=== PATIENT | male | born 1980 | race African-American/Black ===

== ENCOUNTER 2021-02-05 16:05 | Inpatient (IN) ==
[2021-02-05] MEDS ORDERED: DEXTROSE 50% 25 GM/50 ML VIAL IV PRN (19:40)
[2021-02-05] MEDS ORDERED: GLUCAGON 1 MG VIAL IM PRN (19:40)
[2021-02-05] MEDS ORDERED: ENOXAPARIN 40 MG/0.4 ML SYRINGE SUBCUT SCH (20:00)
[2021-02-05] MEDS ORDERED: ENOXAPARIN 100 MG/ML SYRINGE SUBCUT SCH (20:30)
[2021-02-05 20:35] LABS: Basophils # 0.1 10*3/uL (0.0-0.2); Basophils % 0.8 % (0.0-0.8); Eosinophils # 0.2 10*3/uL (0.0-0.87); Eosinophils % 2.2 % (0.00-10.9); Hematocrit 51.3 VOL% (42.0-52.0); Hemoglobin 16.8 GM/DL (14.0-18.0); Immature Granulocytes % 0.6 %; Immature Granulocytes Absolute 0.05 #; Lymphocytes # 2.4 10*3/uL (1.4-4.0); Lymphocytes % 30.5 % (21.2-54.2); Mean Corpuscular HGB Conc 32.7 GM/DL (32-36); Mean Corpuscular Volume 90.5 FL (87-102); Mean Platelet Volume 9.6 FL (9.6-12.0); Monocytes % 7.3 % (1.7-12.7); Neutrophils % 58.6 % (38.7-73.9); Platelet Count 219 T/CUMM (130-400); Red Blood Count 5.67 MC/CUMM (3.8-5.5); Red Cell Distribution Width 13.6 % (9.3-17.3); White Blood Count 7.8 T/CUMM (4-12)
[2021-02-05 21:08] LABS: Albumin 3.8 G/DL (3.4-5.0); Bilirubin,Total 0.9 MG/DL (0.2-1.0); Calcium 8.8 MG/DL (8.5-10.1); Osmolality,Calculated 279.3 MOS/KG (273-304); Potassium 3.6 MMOL/L (3.5-5.1); Thyroid Stimulating Hormone 1.23 uIU/ml (0.358-3.74); Total Protein 7.5 G/DL (6.4-8.2)
[2021-02-05] MEDS ORDERED: HEPARIN DRIP 25,000 UNITS/500 ML PREMIX IV SCH (21:30)
[2021-02-06] MEDS: hydrALAZINE 20 MG/1 ML VIAL IV PRN ×2 (00:34→12:31)
[2021-02-06 01:34] LABS: Basophils # 0.1 10*3/uL (0.0-0.2); Basophils % 0.8 % (0.0-0.8); Eosinophils # 0.3 10*3/uL (0.0-0.87); Eosinophils % 2.8 % (0.00-10.9); Hematocrit 50.7 VOL% (42.0-52.0); Hemoglobin 17.4 GM/DL (14.0-18.0); Immature Granulocytes % 0.4 %; Immature Granulocytes Absolute 0.04 #; Lymphocytes # 2.9 10*3/uL (1.4-4.0); Lymphocytes % 32.1 % (21.2-54.2); Mean Corpuscular HGB Conc 34.3 GM/DL (32-36); Mean Corpuscular Volume 88.5 FL (87-102); Mean Platelet Volume 9.8 FL (9.6-12.0); Monocytes % 7.6 % (1.7-12.7); Neutrophils % 56.3 % (38.7-73.9); Platelet Count 224 T/CUMM (130-400); Red Blood Count 5.73 MC/CUMM (3.8-5.5); Red Cell Distribution Width 13.6 % (9.3-17.3); White Blood Count 9.1 T/CUMM (4-12)
[2021-02-06 01:58] LABS: Calcium 8.6 MG/DL (8.5-10.1); Osmolality,Calculated 276.5 MOS/KG (273-304); Potassium 3.4 MMOL/L (3.5-5.1); VLDL Cholesterol 59.2 MG/DL
[2021-02-06] MEDS ORDERED: LABETALOL 20 MG/4 ML SYRINGE IV ONE (04:59)
[2021-02-06] MEDS: ACETAMINOPHEN 325 MG TABLET PO PRN ×2 (05:40→15:40)
[2021-02-06] MEDS ORDERED: DIAZEPAM 5 MG TABLET PO ONE (09:19)
[2021-02-06] MEDS ORDERED: diphenhydrAMINE CAP 25 MG CAPSULE PO ONE (09:19)
[2021-02-06] MEDS ORDERED: SODIUM CHLORIDE 0.45% 1,000 ML IV SCH (09:30)
[2021-02-06] MEDS ORDERED: LIDOCAINE 1% 20 ML VIAL ONE (09:43)
[2021-02-06] MEDS ORDERED: HEPARIN/NACL 0.9% 2 UNITS/ML 2,000 UNIT/1,000 ML BAG IV ONE (09:43)
[2021-02-06] MEDS: ASPIRIN EC 81 MG TABLET PO SCH (09:44)
[2021-02-06] MEDS: carvediloL 3.125 MG TABLET PO SCH ×2 (09:44→20:46)
[2021-02-06] MEDS: LOSARTAN 25 MG TABLET PO SCH (09:45)
[2021-02-06] MEDS: PANTOPRAZOLE 40 MG TABLET PO SCH (09:45)
[2021-02-06] MEDS ORDERED: fentaNYL 100 MCG/2 ML VIAL ONE (10:21)
[2021-02-06] MEDS ORDERED: MIDAZOLAM 2 MG/2 ML VIAL ONE (10:21)
[2021-02-06] MEDS ORDERED: HEPARIN/NACL 0.9% 2 UNITS/ML 1,000 UNIT/500 ML BAG IV ONE (10:24)
[2021-02-06 12:13] LABS: Barbiturates Screen,Urine Negative (Negative); Benzodiazepines Screen,Urine Positive (Negative); Cannabinoid Screen,Urine Positive (Negative); Opiate Screen,Urine Negative (Negative); Phencyclidine Screen,Urine Negative (Negative)
[2021-02-06] MEDS: ROSUVASTATIN 20 MG TABLET PO SCH (20:46)
[2021-02-06] MEDS: NICOTINE 14 MG/24 HR PATCH TRANSDERM PRN (23:02)
[2021-02-06] MEDS: LABETALOL 20 MG/4 ML SYRINGE IV PRN (23:02)
[2021-02-07 05:37] LABS: Basophils # 0.1 10*3/uL (0.0-0.2); Basophils % 0.5 % (0.0-0.8); Eosinophils # 0.1 10*3/uL (0.0-0.87); Eosinophils % 0.9 % (0.00-10.9); Hematocrit 54.2 VOL% (42.0-52.0); Hemoglobin 17.4 GM/DL (14.0-18.0); Immature Granulocytes % 0.3 %; Immature Granulocytes Absolute 0.03 #; Lymphocytes # 2.2 10*3/uL (1.4-4.0); Lymphocytes % 21.7 % (21.2-54.2); Mean Corpuscular HGB Conc 32.1 GM/DL (32-36); Mean Corpuscular Volume 91.6 FL (87-102); Mean Platelet Volume 9.7 FL (9.6-12.0); Monocytes % 7.5 % (1.7-12.7); Neutrophils % 69.1 % (38.7-73.9); Platelet Count 218 T/CUMM (130-400); Red Blood Count 5.92 MC/CUMM (3.8-5.5); Red Cell Distribution Width 13.7 % (9.3-17.3); White Blood Count 10.1 T/CUMM (4-12)
[2021-02-07 06:02] LABS: Calcium 8.7 MG/DL (8.5-10.1); Osmolality,Calculated 276.5 MOS/KG (273-304); Potassium 3.3 MMOL/L (3.5-5.1)
[2021-02-07] MEDS: LABETALOL 20 MG/4 ML SYRINGE IV PRN (06:42)
[2021-02-07] MEDS: ASPIRIN EC 81 MG TABLET PO SCH (08:41)
[2021-02-07] MEDS: carvediloL 3.125 MG TABLET PO SCH ×2 (08:41→20:33)
[2021-02-07] MEDS: POTASSIUM CHLORIDE 20 MEQ TABLET PO PRN ×3 (08:41→17:18)
[2021-02-07] MEDS: PANTOPRAZOLE 40 MG TABLET PO SCH (08:41)
[2021-02-07] MEDS: LOSARTAN 25 MG TABLET PO SCH ×2 (08:41→20:33)
[2021-02-07] MEDS ORDERED: carvediloL 3.125 MG TABLET PO ONE (09:04)
[2021-02-07] MEDS: ISOSORBIDE MONONITRATE 30 MG TABLET PO SCH (11:16)
[2021-02-07] MEDS: buPROPion SR 150 MG TABLET PO SCH (11:16)
[2021-02-07] MEDS: ACETAMINOPHEN 325 MG TABLET PO PRN (17:15)
[2021-02-07] MEDS: ROSUVASTATIN 20 MG TABLET PO SCH (20:33)
[2021-02-08] MEDS: ACETAMINOPHEN 325 MG TABLET PO PRN ×3 (01:20→21:55)
[2021-02-08 05:58] LABS: Basophils % 0.4 % (0.0-0.8); Eosinophils # 0.2 10*3/uL (0.0-0.87); Eosinophils % 1.4 % (0.00-10.9); Hematocrit 48.4 VOL% (42.0-52.0); Hemoglobin 15.8 GM/DL (14.0-18.0); Immature Granulocytes % 0.5 %; Immature Granulocytes Absolute 0.05 #; Lymphocytes # 2.5 10*3/uL (1.4-4.0); Lymphocytes % 23.5 % (21.2-54.2); Mean Corpuscular HGB Conc 32.6 GM/DL (32-36); Mean Corpuscular Volume 90.8 FL (87-102); Mean Platelet Volume 10.1 FL (9.6-12.0); Monocytes % 8.4 % (1.7-12.7); Neutrophils % 65.8 % (38.7-73.9); Platelet Count 208 T/CUMM (130-400); Red Blood Count 5.33 MC/CUMM (3.8-5.5); Red Cell Distribution Width 13.6 % (9.3-17.3); White Blood Count 10.5 T/CUMM (4-12)
[2021-02-08 06:13] LABS: Calcium 8.4 MG/DL (8.5-10.1); Osmolality,Calculated 278.4 MOS/KG (273-304); Potassium 3.8 MMOL/L (3.5-5.1)
[2021-02-08] MEDS: LOSARTAN 25 MG TABLET PO SCH ×2 (08:31→21:55)
[2021-02-08] MEDS: ASPIRIN EC 81 MG TABLET PO SCH (08:31)
[2021-02-08] MEDS: buPROPion SR 150 MG TABLET PO SCH (08:31)
[2021-02-08] MEDS: carvediloL 3.125 MG TABLET PO SCH ×2 (08:31→21:55)
[2021-02-08] MEDS: PANTOPRAZOLE 40 MG TABLET PO SCH (08:32)
[2021-02-08] MEDS: ISOSORBIDE MONONITRATE 30 MG TABLET PO SCH (08:35)
[2021-02-08] MEDS: POLYETHYLENE GLYCOL POWDER 17 GM PACK PO SCH (10:50)
[2021-02-08] MEDS: ROSUVASTATIN 20 MG TABLET PO SCH (21:55)
[2021-02-09 04:08] LABS: Basophils # 0.1 10*3/uL (0.0-0.2); Basophils % 0.6 % (0.0-0.8); Eosinophils # 0.2 10*3/uL (0.0-0.87); Eosinophils % 2.6 % (0.00-10.9); Hematocrit 48.9 VOL% (42.0-52.0); Hemoglobin 16.8 GM/DL (14.0-18.0); Immature Granulocytes % 0.2 %; Immature Granulocytes Absolute 0.02 #; Lymphocytes # 2.7 10*3/uL (1.4-4.0); Lymphocytes % 32.9 % (21.2-54.2); Mean Corpuscular HGB Conc 34.4 GM/DL (32-36); Mean Corpuscular Volume 88.6 FL (87-102); Mean Platelet Volume 10.2 FL (9.6-12.0); Monocytes % 9.2 % (1.7-12.7); Neutrophils % 54.5 % (38.7-73.9); Platelet Count 187 T/CUMM (130-400); Red Blood Count 5.52 MC/CUMM (3.8-5.5); Red Cell Distribution Width 13.4 % (9.3-17.3); White Blood Count 8.2 T/CUMM (4-12)
[2021-02-09 04:31] LABS: Calcium 8.4 MG/DL (8.5-10.1); Osmolality,Calculated 276.5 MOS/KG (273-304); Potassium 3.4 MMOL/L (3.5-5.1)
[2021-02-09] MEDS: carvediloL 3.125 MG TABLET PO SCH (08:49)
[2021-02-09] MEDS: ISOSORBIDE MONONITRATE 30 MG TABLET PO SCH (08:49)
[2021-02-09] MEDS: ASPIRIN EC 81 MG TABLET PO SCH (08:49)
[2021-02-09] MEDS: PANTOPRAZOLE 40 MG TABLET PO SCH (08:49)
[2021-02-09] MEDS: LOSARTAN 25 MG TABLET PO SCH (08:49)
[2021-02-09] MEDS: POLYETHYLENE GLYCOL POWDER 17 GM PACK PO SCH (08:49)
[2021-02-09] MEDS: buPROPion SR 150 MG TABLET PO SCH (08:50)
[2021-02-09] MEDS ORDERED: carvediloL 6.25 MG TABLET PO ONE (10:06)
[2021-02-09] MEDS ORDERED: ISOSORBIDE MONONITRATE 30 MG TABLET PO ONE (10:08)
[2021-02-09] MEDS ORDERED: POTASSIUM CHLORIDE 20 MEQ TABLET PO ONE (10:09)
[2021-02-09] MEDS: NICOTINE 14 MG/24 HR PATCH TRANSDERM PRN (12:20)
[2021-02-09] MEDS: ALUMINUM/MAGNES/SIMETH MAX STR 30 ML UDCUP PO PRN (13:14)
[2021-02-09] MEDS: LORazepam 1 MG TABLET PO PRN ×2 (13:14→20:41)
[2021-02-09] MEDS: ACETAMINOPHEN 325 MG TABLET PO PRN ×2 (15:47→20:41)
[2021-02-09] MEDS: carvediloL 12.5 MG TABLET PO SCH (20:41)
[2021-02-09] MEDS: ROSUVASTATIN 20 MG TABLET PO SCH (20:41)
[2021-02-09] MEDS: VALSARTAN 80 MG TABLET PO SCH (20:50)
[2021-02-10] MEDS ORDERED: MAGNESIUM HYDROXIDE SUSP 30 ML UDCUP PO ONE (09:24)
[2021-02-10] MEDS: PANTOPRAZOLE 40 MG TABLET PO SCH (10:57)
[2021-02-10] MEDS: buPROPion SR 150 MG TABLET PO SCH (10:57)
[2021-02-10] MEDS: ISOSORBIDE MONONITRATE 30 MG TABLET PO SCH (10:57)
[2021-02-10] MEDS: ASPIRIN EC 81 MG TABLET PO SCH (10:58)
[2021-02-10] MEDS: carvediloL 12.5 MG TABLET PO SCH ×2 (10:58→21:45)
[2021-02-10] MEDS: POLYETHYLENE GLYCOL POWDER 17 GM PACK PO SCH (10:59)
[2021-02-10] MEDS: VALSARTAN 80 MG TABLET PO SCH ×2 (11:02→21:45)
[2021-02-10] MEDS: ALUMINUM/MAGNES/SIMETH MAX STR 30 ML UDCUP PO PRN (15:45)
[2021-02-10] MEDS: ACETAMINOPHEN 325 MG TABLET PO PRN (15:52)
[2021-02-10] MEDS: CLORAZEPATE 3.75 MG TABLET PO PRN (17:26)
[2021-02-10] MEDS: NICOTINE 14 MG/24 HR PATCH TRANSDERM PRN (21:45)
[2021-02-10] MEDS: ROSUVASTATIN 20 MG TABLET PO SCH (21:45)
[2021-02-11] MEDS: ACETAMINOPHEN 325 MG TABLET PO PRN ×3 (00:35→22:08)
[2021-02-11] MEDS: CLORAZEPATE 3.75 MG TABLET PO PRN ×3 (00:35→22:08)
[2021-02-11 03:45] LABS: ABG Base Excess 1.3 MMOL/L (-2.5-2.5); ABG HCO3 25.8 MMOL/L (20-26); ABG Oxygen Saturation 97.6 % (95-100); ABG PCO2 40.6 MM HG (35-48); ABG PH 7.421 (7.35-7.45); ABG PO2 99.3 MM HG (80-95)
[2021-02-11 05:16] LABS: Basophils # 0.1 10*3/uL (0.0-0.2); Basophils % 0.7 % (0.0-0.8); Eosinophils # 0.2 10*3/uL (0.0-0.87); Eosinophils % 2.6 % (0.00-10.9); Hematocrit 47.7 VOL% (42.0-52.0); Hemoglobin 15.9 GM/DL (14.0-18.0); Immature Granulocytes % 0.4 %; Immature Granulocytes Absolute 0.03 #; Lymphocytes % 36.3 % (21.2-54.2); Mean Corpuscular HGB Conc 33.3 GM/DL (32-36); Mean Corpuscular Volume 90.3 FL (87-102); Mean Platelet Volume 10.1 FL (9.6-12.0); Monocytes % 8.3 % (1.7-12.7); Neutrophils % 51.7 % (38.7-73.9); Platelet Count 207 T/CUMM (130-400); Red Blood Count 5.28 MC/CUMM (3.8-5.5); Red Cell Distribution Width 13.3 % (9.3-17.3); White Blood Count 8.2 T/CUMM (4-12)
[2021-02-11 05:44] LABS: Alanine Aminotransferase 31 U/L (16-61); Albumin 3.5 G/DL (3.4-5.0); Alkaline Phosphatase 71 U/L (45-117); Aspartate Amino Transferase 12 U/L (0-37); Blood Urea Nitrogen 11 MG/DL (7-18); Calcium 8.7 MG/DL (8.5-10.1); Carbon Dioxide 29 MMOL/L (21-32); Estimated Glom Filtration Rate 168 ML/MIN; Glucose 99 MG/DL (74-106); Osmolality,Calculated 275.5 MOS/KG (273-304); Potassium 3.6 MMOL/L (3.5-5.1); Sodium 139 MMOL/L (136-145)
[2021-02-11] MEDS: POLYETHYLENE GLYCOL POWDER 17 GM PACK PO SCH (09:29)
[2021-02-11] MEDS: VALSARTAN 80 MG TABLET PO SCH ×2 (09:31→22:08)
[2021-02-11] MEDS: carvediloL 12.5 MG TABLET PO SCH ×2 (09:32→22:09)
[2021-02-11] MEDS: ASPIRIN EC 81 MG TABLET PO SCH (09:32)
[2021-02-11] MEDS: PANTOPRAZOLE 40 MG TABLET PO SCH (09:32)
[2021-02-11] MEDS: ISOSORBIDE MONONITRATE 30 MG TABLET PO SCH (09:32)
[2021-02-11] MEDS: CHLORHEXIDINE 0.12% ORAL RINSE 60 ML BOTTLE SWISH/SPIT SCH ×2 (09:33→22:09)
[2021-02-11] MEDS: buPROPion SR 150 MG TABLET PO SCH ×2 (09:33→22:08)
[2021-02-11] MEDS: CHLORHEXIDINE 4% SOLN 118 ML BOTTLE TOP SCH ×3 (09:36→22:09)
[2021-02-11] MEDS: ROSUVASTATIN 20 MG TABLET PO SCH (22:08)
[2021-02-12] MEDS ORDERED: PAPAVERINE 60 MG/2 ML VIAL ONE (04:15)
[2021-02-12] MEDS ORDERED: VANCOMYCIN 500 MG VIAL ONE (04:16)
[2021-02-12] MEDS ORDERED: VANCOMYCIN 1,000 MG VIAL ONE (04:16)
[2021-02-12] MEDS ORDERED: CEFUROXIME INJ 1,500 MG in SODIUM CHLORIDE 0.9% 100 ML IV ONE (05:00)
[2021-02-12] MEDS ORDERED: DIAZEPAM 5 MG TABLET PO ONE (05:51)
[2021-02-12] MEDS ORDERED: SODIUM CHLORIDE 0.9% 250 ML IV ONE (06:02)
[2021-02-12] MEDS ORDERED: LIDOCAINE 2% 5 ML VIAL ONE ×2 (06:02→10:23)
[2021-02-12] MEDS ORDERED: MIDAZOLAM 10 MG/2 ML VIAL ONE ×2 (06:02→08:42)
[2021-02-12] MEDS ORDERED: ETOMIDATE 40 MG/20 ML VIAL IV ONE (06:02)
[2021-02-12] MEDS ORDERED: LACTATED RINGERS 1,000 ML IV ONE (06:02)
[2021-02-12] MEDS ORDERED: VECURONIUM 10 MG VIAL IV ONE (06:02)
[2021-02-12] MEDS ORDERED: CALCIUM CHLORIDE 1,000 MG/10 ML VIAL IV ONE (06:02)
[2021-02-12] MEDS ORDERED: SODIUM CHLORIDE 0.9% 1,000 ML IV ONE (06:02)
[2021-02-12] MEDS ORDERED: HEPARIN/NACL 0.9% 2 UNITS/ML 1,000 UNIT/500 ML BAG IV ONE (06:02)
[2021-02-12] MEDS ORDERED: SUFentanil 250 MCG/5 ML AMP ONE (06:03)
[2021-02-12] MEDS ORDERED: AMINOCAPROIC ACID 5,000 MG/20 ML VIAL ONE (06:06)
[2021-02-12] MEDS ORDERED: ePHEDrine 50 MG/ML VIAL ONE (06:26)
[2021-02-12 07:49] LABS: ABG Base Excess 1.7 MMOL/L (-2.5-2.5); ABG HCO3 25.9 MMOL/L (20-26); ABG PCO2 33.5 MM HG (35-48); ABG PH 7.473 (7.35-7.45); ABG TCO2 20.6 MMOL/L (23-27); Glucose Heart Surgery 133 MG/DL (74-106); Hematocrit Heart Surgery 46.9 PERCENT (42-52); Hemoglobin Heart Surgery 15.3 G/DL (14.0-18.0); Ionized Calcium Arterial 1.09 MMOL/L (1.21-1.46); PCO2 Patient Temp Arterial 33.5 MMHG; PH Patient Temp Arterial 7.473; Patient Temperature 37 CELCIUS; Potassium Heart/CVR 3.6 MMOL/L (3.5-5.1); Sodium Heart/CVR 138 MMOL/L (135-145)
[2021-02-12 07:55] LABS: Bilirubin,Urine Negative (Negative); Blood, Urine Moderate mg/dL (Negative); Glucose,Urine (UA) Negative (Negative); Ketones,Urine Negative (Negative); Mucus,Urine Many /LPF (Occasional); Nitrite,Urine Negative (Negative); Protein,Urine Negative; RBC,Urine 1 /HPF (0-4); Urine Appearance CLEAR (Clear); Urine Color Yellow (Yellow); Urine Specific Gravity 1.024 (1.001-1.035); Urine Urobilinogen < 2.0 EU/DL (0.2-1.0)
[2021-02-12] MEDS ORDERED: POTASSIUM CHLORIDE RIDER 20 MEQ/100 ML PREMIX IV ONE (08:15)
[2021-02-12] MEDS ORDERED: PHENYLEPHRINE DRIP 40 MG/250 ML PREMIX IV ONE (08:15)
[2021-02-12] MEDS ORDERED: SODIUM BICARBONATE 50 MEQ/50 ML VIAL IV ONE ×2 (08:15→10:24)
[2021-02-12] MEDS ORDERED: NITROPRUSSIDE 50 MG/2 ML VIAL ONE (08:15)
[2021-02-12] MEDS ORDERED: CALCIUM CHLORIDE 1,000 MG/10 ML SYRINGE IV ONE (08:16)
[2021-02-12] MEDS ORDERED: ALBUMIN 5% 25.0 GM/500 ML VIAL IV ONE (08:17)
[2021-02-12 09:11] LABS: Hematocrit Heart Surgery 34.7 PERCENT (42-52); Hemoglobin Heart Surgery 11.2 G/DL (14.0-18.0); PCO2 Patient Temp Venous 32.4 MM HG; PH Patient Temp Venous 7.5; PO2 Patient Temp Venous 35.5 MM HG; Potassium Heart/CVR 5.1 MMOL/L (3.5-5.1); VBG Base Excess 2.5 MEQ/L (0-4); VBG HCO3 26.3 MEQ/L (24-28); VBG Oxygen Saturation 81.5 %; VBG PCO2 37.4 MMHG (41-51); VBG PH 7.455; VBG PO2 43.7 MMHG (17-40); VBG Total CO2 23.5 MMOL/L
[2021-02-12] MEDS ORDERED: SEVOFLURANE 1 UNIT/15 MINUTE INH ONE ×12 (09:20→10:34)
[2021-02-12 09:42] LABS: Hematocrit Heart Surgery 34.9 PERCENT (42-52); Hemoglobin Heart Surgery 11.3 G/DL (14.0-18.0); PCO2 Patient Temp Venous 30.6 MM HG; PH Patient Temp Venous 7.513; PO2 Patient Temp Venous 38.2 MM HG; Potassium Heart/CVR 4.7 MMOL/L (3.5-5.1); VBG Base Excess 2.2 MEQ/L (0-4); VBG HCO3 26.1 MEQ/L (24-28); VBG Oxygen Saturation 84.9 %; VBG PCO2 35.3 MMHG (41-51); VBG PH 7.468; VBG PO2 47.1 MMHG (17-40); VBG Total CO2 22.8 MMOL/L
[2021-02-12] MEDS ORDERED: THROMBIN TOPICAL (RECOMBINANT) 5,000 UNIT VIAL TOP ONE (10:04)
[2021-02-12] MEDS ORDERED: ALBUMIN 25% 25 GM/100 ML VIAL IV ONE (10:21)
[2021-02-12] MEDS ORDERED: methylPREDNISolone SOD SUC 1,000 MG/8 ML VIAL ONE (10:23)
[2021-02-12] MEDS ORDERED: HEPARIN 10,000 UNIT/10 ML VIAL ONE (10:23)
[2021-02-12] MEDS ORDERED: MAGNESIUM SULFATE 5 GM/10 ML VIAL IV ONE (10:23)
[2021-02-12] MEDS ORDERED: PROTAMINE SULFATE 250 MG/25 ML VIAL IV ONE (10:23)
[2021-02-12] MEDS ORDERED: DEXTROSE 5% KCL 20 MEQ 20 MEQ/1,000 ML BAG IV ONE (10:23)
[2021-02-12] MEDS ORDERED: FUROSEMIDE 20 MG/2 ML VIAL ONE (10:23)
[2021-02-12] MEDS ORDERED: MANNITOL 100 GM/500 ML BAG IV ONE (10:23)
[2021-02-12] MEDS ORDERED: PROTAMINE SULFATE 50 MG/5 ML VIAL IV ONE ×2 (10:24→11:33)
[2021-02-12 10:35] LABS: ABG HCO3 24.5 MMOL/L (20-26); ABG PCO2 36.3 MM HG (35-48); ABG PH 7.427 (7.35-7.45); ABG TCO2 20.9 MMOL/L (23-27); Glucose Heart Surgery 209 MG/DL (74-106); Hematocrit Heart Surgery 39.8 PERCENT (42-52); Ionized Calcium Arterial 1.11 MMOL/L (1.21-1.46); PCO2 Patient Temp Arterial 36.3 MMHG; PH Patient Temp Arterial 7.427; Patient Temperature 37 CELCIUS; Potassium Heart/CVR 3.9 MMOL/L (3.5-5.1); Sodium Heart/CVR 136 MMOL/L (135-145)
[2021-02-12] MEDS ORDERED: NITROGLYCERIN DRIP 50 MG/250 ML BOTTLE IV ONE (10:42)
[2021-02-12] MEDS ORDERED: PHENYLEPHRINE DRIP 20 MG/250 ML PREMIX IV ONE (10:42)
[2021-02-12] MEDS ORDERED: PHENYLEPHRINE 1 MG/10 ML SYRINGE IV ONE (10:42)
[2021-02-12] MEDS ORDERED: NITROPRUSSIDE 100 MG in DEXTROSE 5% 250 ML IV PRN (10:59)
[2021-02-12] MEDS ORDERED: MAGNESIUM SULF RIDER 2 GM/50 ML PREMIX IV PRN (10:59)
[2021-02-12] MEDS ORDERED: INSULIN REGULAR 100 UNIT/ML IV ONE (10:59)
[2021-02-12] MEDS ORDERED: MORPHINE 10 MG/1 ML VIAL IV PRN (10:59)
[2021-02-12] MEDS ORDERED: PHENYLEPHRINE DRIP 40 MG/250 ML PREMIX IV PRN (10:59)
[2021-02-12] MEDS ORDERED: MAGNESIUM SULF RIDER 4 GM/100 ML PREMIX IV PRN (10:59)
[2021-02-12] MEDS ORDERED: CALCIUM CHLORIDE 1,000 MG/10 ML SYRINGE IV PRN (10:59)
[2021-02-12] MEDS ORDERED: INSULIN REGULAR 100 UNIT/ML IV PRN (10:59)
[2021-02-12] MEDS ORDERED: DEXTROSE 50% 25 GM/50 ML VIAL IV PRN ×2 (10:59)
[2021-02-12] MEDS ORDERED: CHLORHEXIDINE 4% SOLN 118 ML BOTTLE TOP PRN (10:59)
[2021-02-12] MEDS ORDERED: MIDAZOLAM 10 MG/2 ML VIAL IV PRN (10:59)
[2021-02-12] MEDS ORDERED: ACETAMINOPHEN 650 MG SUPP RECTAL PRN (10:59)
[2021-02-12] MEDS ORDERED: VECURONIUM 10 MG VIAL IV PRN ×2 (10:59)
[2021-02-12] MEDS ORDERED: MIDAZOLAM 2 MG/2 ML VIAL IV PRN (10:59)
[2021-02-12] MEDS ORDERED: INSULIN REGULAR DRIP 100 ML IV SCH (11:00)
[2021-02-12] MEDS ORDERED: SODIUM CHLORIDE 0.45% 1,000 ML IV SCH (11:00)
[2021-02-12] MEDS: SODIUM CHLORIDE 0.45% 1,000 ML IV SCH (11:11)
[2021-02-12] MEDS: LACTATED RINGERS 250 ML IV PRN ×8 (11:30→13:29)
[2021-02-12] MEDS: ASPIRIN EC 81 MG TABLET PO SCH (11:36)
[2021-02-12] MEDS: SODIUM CHLORIDE 0.9% 1,000 ML IV SCH (11:36)
[2021-02-12] MEDS: carvediloL 12.5 MG TABLET PO SCH (11:36)
[2021-02-12] MEDS: PANTOPRAZOLE 40 MG TABLET PO SCH (11:37)
[2021-02-12] MEDS: ISOSORBIDE MONONITRATE 30 MG TABLET PO SCH (11:37)
[2021-02-12] MEDS: VALSARTAN 80 MG TABLET PO SCH ×3 (11:37→20:14)
[2021-02-12] MEDS: POLYETHYLENE GLYCOL POWDER 17 GM PACK PO SCH (11:37)
[2021-02-12] MEDS: buPROPion SR 150 MG TABLET PO SCH (11:37)
[2021-02-12] MEDS: CHLORHEXIDINE 0.12% ORAL RINSE 60 ML BOTTLE SWISH/SPIT SCH ×2 (11:37→20:34)
[2021-02-12 12:01] LABS: ABG Base Excess 0.4 MMOL/L (-2.5-2.5); ABG HCO3 24.8 MMOL/L (20-26); ABG Oxygen Saturation 98.7 % (95-100); ABG PCO2 43.8 MM HG (35-48); ABG TCO2 22.2 MMOL/L (23-27); Glucose Heart Surgery 174 MG/DL (74-106); Hematocrit Heart Surgery 44.4 PERCENT (42-52); Hemoglobin Heart Surgery 14.5 G/DL (14.0-18.0); Potassium Heart/CVR 3.6 MMOL/L (3.5-5.1)
[2021-02-12 12:17] LABS: Basophils # 0.1 10*3/uL (0.0-0.2); Basophils % 0.4 % (0.0-0.8); Eosinophils # 0.1 10*3/uL (0.0-0.87); Eosinophils % 0.5 % (0.00-10.9); Hematocrit 42.6 VOL% (42.0-52.0); Hemoglobin 14.1 GM/DL (14.0-18.0); Immature Granulocytes Absolute 0.13 #; Lymphocytes # 1.1 10*3/uL (1.4-4.0); Lymphocytes % 8.7 % (21.2-54.2); Mean Corpuscular HGB Conc 33.1 GM/DL (32-36); Mean Corpuscular Volume 90.1 FL (87-102); Monocytes % 5.2 % (1.7-12.7); Neutrophils % 84.2 % (38.7-73.9); Platelet Count 198 T/CUMM (130-400); Red Blood Count 4.73 MC/CUMM (3.8-5.5); Red Cell Distribution Width 13.4 % (9.3-17.3)
[2021-02-12 12:28] LABS: Albumin 3.2 G/DL (3.4-5.0); Bilirubin,Total 0.8 MG/DL (0.2-1.0); Calcium 7.8 MG/DL (8.5-10.1); Osmolality,Calculated 283.3 MOS/KG (273-304); PT Patient Result 11.6 SECS (10.5-12.0); Partial Thromboplastin Time 29.1 SECS (23.9-33.8); Potassium 3.7 MMOL/L (3.5-5.1); Total Protein 5.9 G/DL (6.4-8.2)
[2021-02-12 12:29] LABS: CKMB % 3.4 %
[2021-02-12 12:30] LABS: High Sensitive Troponin I* 3500.5 ng/L (0-78)
[2021-02-12] MEDS: POTASSIUM CHLORIDE RIDER 20 MEQ/100 ML PREMIX IV PRN ×3 (12:31→20:14)
[2021-02-12] MEDS: POTASSIUM CHLORIDE RIDER 10 MEQ/100 ML PREMIX IV PRN ×3 (13:15→21:17)
[2021-02-12] MEDS: ALBUMIN 5% 12.5 GM/250 ML VIAL IV PRN ×4 (13:25→16:08)
[2021-02-12] MEDS: MORPHINE 4 MG/1 ML VIAL IV PRN ×2 (13:36→15:46)
[2021-02-12] MEDS: KETOROLAC 30 MG/1 ML VIAL IV SCH ×2 (13:42→19:25)
[2021-02-12 14:05] LABS: ABG Base Excess 0.9 MMOL/L (-2.5-2.5); ABG HCO3 25.2 MMOL/L (20-26); ABG Oxygen Saturation 98.8 % (95-100); ABG PH 7.449 (7.35-7.45); ABG TCO2 20.8 MMOL/L (23-27); Glucose Heart Surgery 202 MG/DL (74-106); Hematocrit Heart Surgery 43.9 PERCENT (42-52); Hemoglobin Heart Surgery 14.3 G/DL (14.0-18.0); Potassium Heart/CVR 4.2 MMOL/L (3.5-5.1)
[2021-02-12] MEDS ORDERED: hydrALAZINE 20 MG/1 ML VIAL IV ONE (14:25)
[2021-02-12] MEDS ORDERED: carvediloL 12.5 MG TABLET PO SCH (14:26)
[2021-02-12] MEDS ORDERED: hydrALAZINE 20 MG/1 ML VIAL ONE (14:29)
[2021-02-12 15:43] LABS: ABG Base Excess -0.5 MMOL/L (-2.5-2.5); ABG HCO3 23.4 MMOL/L (20-26); ABG Oxygen Saturation 98.1 % (95-100); ABG PO2 111.8 MM HG (80-95); ABG TCO2 24.5 MMOL/L (23-27); Glucose Heart Surgery 171 MG/DL (74-106); Potassium Heart/CVR 3.5 MMOL/L (3.5-5.1)
[2021-02-12] MEDS: oxyCODONE/ACETAMINOPHEN 5-325 MG TABLET PO PRN (16:48)
[2021-02-12] MEDS ORDERED: carvediloL 12.5 MG TABLET PO ONE (17:11)
[2021-02-12] MEDS: HYDROmorphone 2 MG/1 ML VIAL IV PRN ×2 (17:20→21:17)
[2021-02-12] MEDS ORDERED: NITROGLYCERIN DRIP 50 MG/250 ML BOTTLE IV PRN (18:05)
[2021-02-12] MEDS: CEFUROXIME INJ 1,500 MG in SODIUM CHLORIDE 0.9% 100 ML IV SCH (19:10)
[2021-02-12 19:50] LABS: Potassium 3.9 MMOL/L (3.5-5.1)
[2021-02-12] MEDS: INSULIN LISPRO 100 UNIT/ML SUBCUT SCH (20:13)
[2021-02-12] MEDS: carvediloL 25 MG TABLET PO SCH (20:14)
[2021-02-12 20:36] LABS: CKMB % 2.3 %
[2021-02-12 20:38] LABS: High Sensitive Troponin I* 3247.3 ng/L (0-78)
[2021-02-12] MEDS: ONDANSETRON 4 MG/2 ML VIAL IV PRN (21:17)
[2021-02-12 23:03] LABS: ABG Base Excess -0.1 MMOL/L (-2.5-2.5); ABG HCO3 24.4 MMOL/L (20-26); ABG Oxygen Saturation 97.7 % (95-100); ABG PCO2 43.1 MM HG (35-48); ABG PH 7.377 (7.35-7.45); ABG PO2 97.9 MM HG (80-95); ABG TCO2 22.2 MMOL/L (23-27); Glucose Heart Surgery 159 MG/DL (74-106); Hematocrit Heart Surgery 39.7 PERCENT (42-52); Hemoglobin Heart Surgery 12.9 G/DL (14.0-18.0); Potassium Heart/CVR 4.3 MMOL/L (3.5-5.1)
[2021-02-13] MEDS: HYDROmorphone 2 MG/1 ML VIAL IV PRN ×2 (00:30→07:33)
[2021-02-13] MEDS ORDERED: CLORAZEPATE 3.75 MG TABLET PO ONE ×2 (01:05→09:30)
[2021-02-13] MEDS: INSULIN LISPRO 100 UNIT/ML SUBCUT SCH ×7 (01:32→23:52)
[2021-02-13] MEDS ORDERED: NITROPRUSSIDE 50 MG/2 ML VIAL ONE ×2 (01:43→01:45)
[2021-02-13] MEDS: oxyCODONE/ACETAMINOPHEN 5-325 MG TABLET PO PRN ×3 (02:08→21:47)
[2021-02-13] MEDS: KETOROLAC 30 MG/1 ML VIAL IV SCH ×4 (02:08→20:01)
[2021-02-13 02:44] LABS: ABG Base Excess 1.9 MMOL/L (-2.5-2.5); ABG HCO3 26.1 MMOL/L (20-26); ABG Oxygen Saturation 97.2 % (95-100); ABG PCO2 42.6 MM HG (35-48); ABG PH 7.408 (7.35-7.45); ABG PO2 84.8 MM HG (80-95); ABG TCO2 24.2 MMOL/L (23-27); Glucose Heart Surgery 172 MG/DL (74-106); Hemoglobin Heart Surgery 10.7 G/DL (14.0-18.0); Potassium Heart/CVR 3.8 MMOL/L (3.5-5.1)
[2021-02-13] MEDS ORDERED: SUFentanil 250 MCG/5 ML AMP ONE (02:44)
[2021-02-13] MEDS ORDERED: VECURONIUM 10 MG VIAL IV ONE (02:44)
[2021-02-13] MEDS ORDERED: MIDAZOLAM 10 MG/2 ML VIAL ONE (02:44)
[2021-02-13] MEDS ORDERED: ETOMIDATE 40 MG/20 ML VIAL IV ONE (02:49)
[2021-02-13] MEDS ORDERED: AMIODARONE 150 MG/3 ML VIAL ONE (03:38)
[2021-02-13 03:46] LABS: ABG Base Excess 1.9 MMOL/L (-2.5-2.5); ABG HCO3 26.1 MMOL/L (20-26); ABG PCO2 32.8 MM HG (35-48); ABG PH 7.487 (7.35-7.45); ABG TCO2 22.3 MMOL/L (23-27); Glucose Heart Surgery 158 MG/DL (74-106); Hematocrit Heart Surgery 32.7 PERCENT (42-52); Hemoglobin Heart Surgery 10.6 G/DL (14.0-18.0); Ionized Calcium Arterial 1.04 MMOL/L (1.21-1.46); PCO2 Patient Temp Arterial 32.8 MMHG; PH Patient Temp Arterial 7.487; Patient Temperature 37 CELCIUS; Sodium Heart/CVR 135 MMOL/L (135-145)
[2021-02-13] MEDS ORDERED: VANCOMYCIN 1,000 MG VIAL ONE (03:50)
[2021-02-13] MEDS ORDERED: EPINEPHrine 1 MG/10 ML SYRINGE ONE (03:59)
[2021-02-13] MEDS ORDERED: CALCIUM CHLORIDE 1,000 MG/10 ML VIAL IV ONE (04:13)
[2021-02-13] MEDS ORDERED: PHENYLEPHRINE DRIP 20 MG/250 ML PREMIX IV ONE (04:48)
[2021-02-13 04:49] LABS: ABG Base Excess 1.3 MMOL/L (-2.5-2.5); ABG HCO3 25.6 MMOL/L (20-26); ABG PCO2 30.4 MM HG (35-48); ABG PH 7.502 (7.35-7.45); ABG TCO2 21.5 MMOL/L (23-27); Glucose Heart Surgery 143 MG/DL (74-106); Hematocrit Heart Surgery 31.5 PERCENT (42-52); Hemoglobin Heart Surgery 10.2 G/DL (14.0-18.0); Potassium Heart/CVR 3.6 MMOL/L (3.5-5.1)
[2021-02-13 05:16] LABS: Basophils % 0.1 % (0.0-0.8); Immature Granulocytes % 0.6 %; Immature Granulocytes Absolute 0.11 #; Lymphocytes # 1.4 10*3/uL (1.4-4.0); Lymphocytes % 7.8 % (21.2-54.2); Mean Corpuscular HGB Conc 33.7 GM/DL (32-36); Mean Corpuscular Volume 89.6 FL (87-102); Mean Platelet Volume 10.2 FL (9.6-12.0); Monocytes % 6.6 % (1.7-12.7); Neutrophils % 84.9 % (38.7-73.9); Red Cell Distribution Width 13.5 % (9.3-17.3)
[2021-02-13 05:17] LABS: Albumin 3.5 G/DL (3.4-5.0); Bilirubin,Direct 0.16 MG/DL (0.0-0.20); Bilirubin,Total 0.7 MG/DL (0.2-1.0); Calcium 8.8 MG/DL (8.5-10.1); Hemoglobin 10.1 GM/DL (14.0-18.0); Osmolality,Calculated 271.1 MOS/KG (273-304); Platelet Count 257 T/CUMM (130-400); Potassium 3.7 MMOL/L (3.5-5.1); Red Blood Count 3.35 MC/CUMM (3.8-5.5); Total Protein 5.8 G/DL (6.4-8.2); White Blood Count 17.9 T/CUMM (4-12)
[2021-02-13] MEDS: POTASSIUM CHLORIDE RIDER 10 MEQ/100 ML PREMIX IV PRN (05:19)
[2021-02-13 05:20] LABS: CKMB % 2.1 %
[2021-02-13] MEDS: POTASSIUM CHLORIDE RIDER 20 MEQ/100 ML PREMIX IV PRN (05:39)
[2021-02-13] MEDS: MORPHINE 4 MG/1 ML VIAL IV PRN (05:52)
[2021-02-13 06:37] LABS: ABG Base Excess 0.8 MMOL/L (-2.5-2.5); ABG HCO3 23.7 MMOL/L (20-26); ABG Oxygen Saturation 98.7 % (95-100); ABG PCO2 32.3 MM HG (35-48); ABG PH 7.484 (7.35-7.45); ABG PO2 172.2 MM HG (80-95); ABG TCO2 24.7 MMOL/L (23-27); Glucose Heart Surgery 111 MG/DL (74-106); Potassium Heart/CVR 4.2 MMOL/L (3.5-5.1)
[2021-02-13] MEDS: CLORAZEPATE 3.75 MG TABLET PO PRN ×2 (07:34→20:02)
[2021-02-13] MEDS: CEFUROXIME INJ 1,500 MG in SODIUM CHLORIDE 0.9% 100 ML IV SCH ×2 (07:47→18:00)
[2021-02-13] MEDS: amLODIPine 5 MG TABLET PO SCH (08:45)
[2021-02-13] MEDS: CHLORHEXIDINE 0.12% ORAL RINSE 60 ML BOTTLE SWISH/SPIT SCH ×2 (08:45→20:01)
[2021-02-13] MEDS: carvediloL 25 MG TABLET PO SCH ×2 (08:45→20:01)
[2021-02-13] MEDS: VALSARTAN 80 MG TABLET PO SCH ×2 (08:45→20:01)
[2021-02-13] MEDS: buPROPion SR 150 MG TABLET PO SCH ×2 (10:03→20:01)
[2021-02-13 10:37] LABS: ABG Base Excess 2.2 MMOL/L (-2.5-2.5); ABG PCO2 43.1 MM HG (35-48); ABG PH 7.415 (7.35-7.45); ABG PO2 117.4 MM HG (80-95); ABG TCO2 28.3 MMOL/L (23-27); Glucose Heart Surgery 116 MG/DL (74-106); Hemoglobin Heart Surgery 11.2 G/DL (14.0-18.0); Potassium Heart/CVR 4.1 MMOL/L (3.5-5.1)
[2021-02-13 10:58] LABS: CKMB % 2.1 %
[2021-02-13 11:01] LABS: High Sensitive Troponin I* 3252.6 ng/L (0-78)
[2021-02-13] MEDS: SODIUM CHLORIDE 0.45% 1,000 ML IV SCH (12:15)
[2021-02-13] MEDS: ASPIRIN EC 325 MG TABLET PO SCH (12:15)
[2021-02-13] MEDS: ONDANSETRON 4 MG/2 ML VIAL IV PRN (13:59)
[2021-02-14] MEDS: oxyCODONE/ACETAMINOPHEN 5-325 MG TABLET PO PRN (01:34)
[2021-02-14] MEDS: KETOROLAC 30 MG/1 ML VIAL IV SCH ×4 (02:05→21:35)
[2021-02-14 04:15] LABS: Basophils % 0.1 % (0.0-0.8); Hematocrit 31.3 VOL% (42.0-52.0); Hemoglobin 10.6 GM/DL (14.0-18.0); Immature Granulocytes % 0.4 %; Immature Granulocytes Absolute 0.06 #; Lymphocytes # 1.4 10*3/uL (1.4-4.0); Lymphocytes % 9.4 % (21.2-54.2); Mean Corpuscular HGB Conc 33.9 GM/DL (32-36); Mean Corpuscular Volume 90.7 FL (87-102); Mean Platelet Volume 10.2 FL (9.6-12.0); Monocytes % 8.4 % (1.7-12.7); Neutrophils % 81.7 % (38.7-73.9); Platelet Count 210 T/CUMM (130-400); Red Blood Count 3.45 MC/CUMM (3.8-5.5); Red Cell Distribution Width 13.7 % (9.3-17.3)
[2021-02-14 04:41] LABS: Albumin 3.4 G/DL (3.4-5.0); Bilirubin,Direct 0.12 MG/DL (0.0-0.20); Bilirubin,Total 0.4 MG/DL (0.2-1.0); Calcium 8.4 MG/DL (8.5-10.1); Osmolality,Calculated 278.5 MOS/KG (273-304); Potassium 4.1 MMOL/L (3.5-5.1); Total Protein 6.3 G/DL (6.4-8.2)
[2021-02-14] MEDS: INSULIN LISPRO 100 UNIT/ML SUBCUT SCH ×2 (04:49→07:33)
[2021-02-14] MEDS: buPROPion SR 150 MG TABLET PO SCH ×2 (08:20→21:35)
[2021-02-14] MEDS: ASPIRIN EC 325 MG TABLET PO SCH (08:20)
[2021-02-14] MEDS: VALSARTAN 80 MG TABLET PO SCH ×2 (08:20→21:36)
[2021-02-14] MEDS: amLODIPine 5 MG TABLET PO SCH (08:20)
[2021-02-14] MEDS: carvediloL 25 MG TABLET PO SCH (08:21)
[2021-02-14] MEDS: CHLORHEXIDINE 0.12% ORAL RINSE 60 ML BOTTLE SWISH/SPIT SCH ×2 (08:24→21:35)
[2021-02-14] MEDS ORDERED: DEXTROSE 50% 25 GM/50 ML VIAL IV PRN (10:36)
[2021-02-14] MEDS ORDERED: GLUCAGON 1 MG VIAL IM PRN (10:36)
[2021-02-14] MEDS ORDERED: POTASSIUM CHLORIDE 20 MEQ TABLET PO PRN (10:36)
[2021-02-14] MEDS ORDERED: MAGNESIUM SULF RIDER 2 GM/50 ML PREMIX IV PRN (10:36)
[2021-02-14] MEDS ORDERED: SODIUM CHLOR 0.45% KCL 20 MEQ 20 MEQ/1,000 ML BAG IV SCH (10:36)
[2021-02-14] MEDS ORDERED: MAGNESIUM SULF RIDER 4 GM/100 ML PREMIX IV PRN (10:36)
[2021-02-14] MEDS ORDERED: ZALEPLON 5 MG CAPSULE PO PRN (10:36)
[2021-02-14] MEDS ORDERED: ALUMINUM/MAGNES/SIMETH MAX STR 30 ML UDCUP PO PRN (10:36)
[2021-02-14] MEDS ORDERED: MAGNESIUM HYDROXIDE SUSP 30 ML UDCUP PO PRN (10:36)
[2021-02-14] MEDS ORDERED: ONDANSETRON 4 MG/2 ML VIAL IV PRN (10:36)
[2021-02-14] MEDS ORDERED: ACETAMINOPHEN 325 MG TABLET PO PRN (10:36)
[2021-02-14] MEDS ORDERED: INSULIN LISPRO 100 UNIT/ML SUBCUT SCH (11:30)
[2021-02-14] MEDS: METOPROLOL TARTRATE 50 MG TABLET PO SCH (21:35)
[2021-02-14] MEDS: ROSUVASTATIN 20 MG TABLET PO SCH (21:35)
[2021-02-15] MEDS: HYDROcodone/CHLORPHENIRAMINE ER 5 ML UDCUP PO PRN ×2 (00:04→20:24)
[2021-02-15] MEDS: KETOROLAC 30 MG/1 ML VIAL IV SCH ×4 (04:00→20:25)
[2021-02-15] MEDS ORDERED: FUROSEMIDE 40 MG/4 ML VIAL IV ONE (06:00)
[2021-02-15 07:16] LABS: Basophils # 0.1 10*3/uL (0.0-0.2); Basophils % 0.4 % (0.0-0.8); Eosinophils # 0.1 10*3/uL (0.0-0.87); Eosinophils % 0.7 % (0.00-10.9); Hematocrit 33.6 VOL% (42.0-52.0); Hemoglobin 10.9 GM/DL (14.0-18.0); Immature Granulocytes % 0.5 %; Immature Granulocytes Absolute 0.08 #; Lymphocytes # 2.3 10*3/uL (1.4-4.0); Mean Corpuscular HGB Conc 32.4 GM/DL (32-36); Mean Corpuscular Volume 92.8 FL (87-102); Mean Platelet Volume 10.6 FL (9.6-12.0); Monocytes % 12.8 % (1.7-12.7); Neutrophils % 70.6 % (38.7-73.9); Platelet Count 242 T/CUMM (130-400); Red Blood Count 3.62 MC/CUMM (3.8-5.5); Red Cell Distribution Width 13.6 % (9.3-17.3); White Blood Count 15.2 T/CUMM (4-12)
[2021-02-15 07:54] LABS: Albumin 3.1 G/DL (3.4-5.0); Bilirubin,Direct 0.13 MG/DL (0.0-0.20); Bilirubin,Total 0.5 MG/DL (0.2-1.0); Calcium 8.1 MG/DL (8.5-10.1); Osmolality,Calculated 279.5 MOS/KG (273-304); Potassium 3.6 MMOL/L (3.5-5.1); Total Protein 6.4 G/DL (6.4-8.2)
[2021-02-15 07:57] LABS: Alanine Aminotransferase 30 U/L (16-61); Albumin 3.2 G/DL (3.4-5.0); Alkaline Phosphatase 65 U/L (45-117); Aspartate Amino Transferase 21 U/L (0-37); Bilirubin,Indirect 0.3 MG/DL (0.0-1.0)
[2021-02-15] MEDS ORDERED: LACTULOSE 20 GM/30 ML UDCUP PO PRN (08:25)
[2021-02-15] MEDS: CHLORHEXIDINE 0.12% ORAL RINSE 60 ML BOTTLE SWISH/SPIT SCH ×2 (09:14→22:20)
[2021-02-15] MEDS: DOCUSATE SODIUM 100 MG CAPSULE PO SCH (09:17)
[2021-02-15] MEDS: ASPIRIN EC 325 MG TABLET PO SCH (09:17)
[2021-02-15] MEDS: VALSARTAN 80 MG TABLET PO SCH ×2 (09:17→20:24)
[2021-02-15] MEDS: FERROUS SULFATE 325 MG TABLET PO SCH (09:17)
[2021-02-15] MEDS: METOPROLOL TARTRATE 50 MG TABLET PO SCH ×2 (09:17→20:24)
[2021-02-15] MEDS: buPROPion SR 150 MG TABLET PO SCH ×2 (09:17→20:30)
[2021-02-15] MEDS: POLYETHYLENE GLYCOL POWDER 17 GM PACK PO SCH (09:52)
[2021-02-15] MEDS: PANTOPRAZOLE 40 MG TABLET PO SCH (09:52)
[2021-02-15] MEDS: ROSUVASTATIN 20 MG TABLET PO SCH (20:25)
[2021-02-16] MEDS: KETOROLAC 30 MG/1 ML VIAL IV SCH ×4 (02:00→20:57)
[2021-02-16 06:22] LABS: Basophils # 0.1 10*3/uL (0.0-0.2); Basophils % 0.7 % (0.0-0.8); Eosinophils # 0.3 10*3/uL (0.0-0.87); Hematocrit 34.2 VOL% (42.0-52.0); Hemoglobin 11.5 GM/DL (14.0-18.0); Immature Granulocytes % 0.5 %; Immature Granulocytes Absolute 0.07 #; Lymphocytes # 2.4 10*3/uL (1.4-4.0); Lymphocytes % 17.9 % (21.2-54.2); Mean Corpuscular HGB Conc 33.6 GM/DL (32-36); Mean Corpuscular Volume 90.5 FL (87-102); Monocytes % 11.9 % (1.7-12.7); NRBC # 0.02 10*3/uL; Platelet Count 260 T/CUMM (130-400); Red Blood Count 3.78 MC/CUMM (3.8-5.5); Red Cell Distribution Width 13.7 % (9.3-17.3); White Blood Count 13.4 T/CUMM (4-12)
[2021-02-16 06:57] LABS: Calcium 8.1 MG/DL (8.5-10.1); Potassium 3.6 MMOL/L (3.5-5.1)
[2021-02-16 07:02] LABS: Alanine Aminotransferase 45 U/L (16-61); Alkaline Phosphatase 76 U/L (45-117); Aspartate Amino Transferase 26 U/L (0-37); Bilirubin,Indirect 0.3 MG/DL (0.0-1.0); Blood Urea Nitrogen 23 MG/DL (7-18); Calcium 8.4 MG/DL (8.5-10.1); Carbon Dioxide 30 MMOL/L (21-32); Estimated Glom Filtration Rate 181 ML/MIN; Glucose 95 MG/DL (74-106); Osmolality,Calculated 284.3 MOS/KG (273-304); Potassium 3.6 MMOL/L (3.5-5.1); Sodium 141 MMOL/L (136-145); Total Protein 6.8 G/DL (6.4-8.2)
[2021-02-16] MEDS: buPROPion SR 150 MG TABLET PO SCH ×2 (09:11→20:57)
[2021-02-16] MEDS: FERROUS SULFATE 325 MG TABLET PO SCH (09:11)
[2021-02-16] MEDS: ASPIRIN EC 325 MG TABLET PO SCH (09:12)
[2021-02-16] MEDS: amLODIPine 5 MG TABLET PO SCH (09:12)
[2021-02-16] MEDS: PANTOPRAZOLE 40 MG TABLET PO SCH (09:12)
[2021-02-16] MEDS: VALSARTAN 80 MG TABLET PO SCH ×2 (09:13→20:57)
[2021-02-16] MEDS: DOCUSATE SODIUM 100 MG CAPSULE PO SCH (09:13)
[2021-02-16] MEDS: POLYETHYLENE GLYCOL POWDER 17 GM PACK PO SCH (09:14)
[2021-02-16] MEDS: METOPROLOL TARTRATE 25 MG TABLET PO SCH ×2 (09:18→20:57)
[2021-02-16] MEDS: CHLORHEXIDINE 0.12% ORAL RINSE 60 ML BOTTLE SWISH/SPIT SCH ×2 (09:19→20:58)
[2021-02-16] MEDS: HYDROcodone/CHLORPHENIRAMINE ER 5 ML UDCUP PO PRN (09:19)
[2021-02-16] MEDS: ROSUVASTATIN 20 MG TABLET PO SCH (20:56)
[2021-02-16] MEDS: oxyCODONE/ACETAMINOPHEN 5-325 MG TABLET PO PRN (20:57)
[2021-02-17] MEDS: KETOROLAC 30 MG/1 ML VIAL IV SCH ×2 (03:00→09:09)
[2021-02-17] MEDS: VALSARTAN 80 MG TABLET PO SCH (09:08)
[2021-02-17] MEDS: POLYETHYLENE GLYCOL POWDER 17 GM PACK PO SCH (09:08)
[2021-02-17] MEDS: ASPIRIN EC 325 MG TABLET PO SCH (09:08)
[2021-02-17] MEDS: buPROPion SR 150 MG TABLET PO SCH ×2 (09:09→20:34)
[2021-02-17] MEDS: METOPROLOL TARTRATE 25 MG TABLET PO SCH (09:09)
[2021-02-17] MEDS: FERROUS SULFATE 325 MG TABLET PO SCH (09:09)
[2021-02-17] MEDS: amLODIPine 5 MG TABLET PO SCH (09:09)
[2021-02-17] MEDS: PANTOPRAZOLE 40 MG TABLET PO SCH (09:09)
[2021-02-17] MEDS: DOCUSATE SODIUM 100 MG CAPSULE PO SCH (09:09)
[2021-02-17] MEDS: CHLORHEXIDINE 0.12% ORAL RINSE 60 ML BOTTLE SWISH/SPIT SCH ×2 (09:10→20:35)
[2021-02-17] MEDS: HYDROcodone/CHLORPHENIRAMINE ER 5 ML UDCUP PO PRN (10:33)
[2021-02-17] MEDS: METOPROLOL TARTRATE 100 MG TABLET PO SCH (20:34)
[2021-02-17] MEDS: ROSUVASTATIN 20 MG TABLET PO SCH (20:34)
[2021-02-17] MEDS: VALSARTAN 160 MG TABLET PO SCH (20:34)
[2021-02-17] MEDS: oxyCODONE/ACETAMINOPHEN 5-325 MG TABLET PO PRN (20:35)
[2021-02-17] MEDS: IBUPROFEN 400 MG TABLET PO PRN (23:32)
[2021-02-18 06:44] LABS: Basophils # 0.1 10*3/uL (0.0-0.2); Basophils % 0.8 % (0.0-0.8); Eosinophils # 0.5 10*3/uL (0.0-0.87); Eosinophils % 4.1 % (0.00-10.9); Hematocrit 35.7 VOL% (42.0-52.0); Hemoglobin 11.6 GM/DL (14.0-18.0); Immature Granulocytes Absolute 0.11 #; Lymphocytes # 2.1 10*3/uL (1.4-4.0); Lymphocytes % 19.4 % (21.2-54.2); Mean Corpuscular HGB Conc 32.5 GM/DL (32-36); Mean Corpuscular Volume 92.2 FL (87-102); Mean Platelet Volume 9.9 FL (9.6-12.0); Monocytes % 10.7 % (1.7-12.7); NRBC # 0.02 10*3/uL; Platelet Count 323 T/CUMM (130-400); Red Blood Count 3.87 MC/CUMM (3.8-5.5); Red Cell Distribution Width 13.9 % (9.3-17.3)
[2021-02-18 07:21] LABS: Alanine Aminotransferase 69 U/L (16-61); Alkaline Phosphatase 91 U/L (45-117); Aspartate Amino Transferase 24 U/L (0-37); Bilirubin,Indirect 0.4 MG/DL (0.0-1.0); Blood Urea Nitrogen 17 MG/DL (7-18); Calcium 8.4 MG/DL (8.5-10.1); Carbon Dioxide 28 MMOL/L (21-32); Estimated Glom Filtration Rate 176 ML/MIN; Glucose 94 MG/DL (74-106); Osmolality,Calculated 282.3 MOS/KG (273-304); Potassium 3.7 MMOL/L (3.5-5.1); Sodium 141 MMOL/L (136-145); Total Protein 6.5 G/DL (6.4-8.2)
[2021-02-18] MEDS ORDERED: hydroCHLOROthiazide 12.5 MG CAPSULE PO SCH (09:00)
[2021-02-18] MEDS: VALSARTAN 160 MG TABLET PO SCH ×2 (09:04→21:05)
[2021-02-18] MEDS: CLORAZEPATE 3.75 MG TABLET PO PRN ×2 (09:04→21:05)
[2021-02-18] MEDS: CHLORHEXIDINE 0.12% ORAL RINSE 60 ML BOTTLE SWISH/SPIT SCH ×2 (09:05→21:05)
[2021-02-18] MEDS: DOCUSATE SODIUM 100 MG CAPSULE PO SCH (09:05)
[2021-02-18] MEDS: METOPROLOL TARTRATE 100 MG TABLET PO SCH ×2 (09:05→21:05)
[2021-02-18] MEDS: FERROUS SULFATE 325 MG TABLET PO SCH (09:05)
[2021-02-18] MEDS: ASPIRIN EC 325 MG TABLET PO SCH (09:05)
[2021-02-18] MEDS: amLODIPine 10 MG TABLET PO SCH (09:05)
[2021-02-18] MEDS: POLYETHYLENE GLYCOL POWDER 17 GM PACK PO SCH (09:05)
[2021-02-18] MEDS: PANTOPRAZOLE 40 MG TABLET PO SCH (09:05)
[2021-02-18] MEDS: buPROPion SR 150 MG TABLET PO SCH ×2 (09:05→21:05)
[2021-02-18] MEDS: IBUPROFEN 400 MG TABLET PO PRN ×3 (09:22→23:51)
[2021-02-18] MEDS: ROSUVASTATIN 20 MG TABLET PO SCH (21:05)
[2021-02-19 06:37] LABS: Basophils # 0.1 10*3/uL (0.0-0.2); Basophils % 0.7 % (0.0-0.8); Eosinophils # 0.5 10*3/uL (0.0-0.87); Eosinophils % 3.7 % (0.00-10.9); Hematocrit 38.8 VOL% (42.0-52.0); Hemoglobin 12.7 GM/DL (14.0-18.0); Immature Granulocytes % 1.3 %; Immature Granulocytes Absolute 0.18 #; Lymphocytes # 2.6 10*3/uL (1.4-4.0); Lymphocytes % 19.3 % (21.2-54.2); Mean Corpuscular HGB Conc 32.7 GM/DL (32-36); Mean Corpuscular Volume 91.5 FL (87-102); Mean Platelet Volume 9.8 FL (9.6-12.0); Monocytes % 9.8 % (1.7-12.7); Neutrophils % 65.2 % (38.7-73.9); Platelet Count 341 T/CUMM (130-400); Red Blood Count 4.24 MC/CUMM (3.8-5.5); White Blood Count 13.6 T/CUMM (4-12)
[2021-02-19 07:24] LABS: Alanine Aminotransferase 55 U/L (16-61); Albumin 3.3 G/DL (3.4-5.0); Alkaline Phosphatase 102 U/L (45-117); Aspartate Amino Transferase 16 U/L (0-37); Bilirubin,Indirect 1.5 MG/DL (0.0-1.0); Blood Urea Nitrogen 15 MG/DL (7-18); Calcium 8.9 MG/DL (8.5-10.1); Carbon Dioxide 29 MMOL/L (21-32); Estimated Glom Filtration Rate 175 ML/MIN; Glucose 96 MG/DL (74-106); Osmolality,Calculated 277.5 MOS/KG (273-304); Potassium 3.5 MMOL/L (3.5-5.1); Sodium 139 MMOL/L (136-145); Total Protein 7.1 G/DL (6.4-8.2)
[2021-02-19] MEDS: PANTOPRAZOLE 40 MG TABLET PO SCH (08:41)
[2021-02-19] MEDS: FERROUS SULFATE 325 MG TABLET PO SCH (08:41)
[2021-02-19] MEDS: POLYETHYLENE GLYCOL POWDER 17 GM PACK PO SCH (08:41)
[2021-02-19] MEDS: amLODIPine 10 MG TABLET PO SCH (08:41)
[2021-02-19] MEDS: hydrALAZINE 25 MG TABLET PO SCH ×2 (08:41→09:51)
[2021-02-19] MEDS: METOPROLOL TARTRATE 100 MG TABLET PO SCH (08:41)
[2021-02-19] MEDS: CHLORHEXIDINE 0.12% ORAL RINSE 60 ML BOTTLE SWISH/SPIT SCH (08:41)
[2021-02-19] MEDS: buPROPion SR 150 MG TABLET PO SCH (08:41)
[2021-02-19] MEDS: VALSARTAN 160 MG TABLET PO SCH (08:41)
[2021-02-19] MEDS: DOCUSATE SODIUM 100 MG CAPSULE PO SCH (08:41)
[2021-02-19] MEDS: ASPIRIN EC 325 MG TABLET PO SCH (08:41)
[2021-02-19] MEDS ORDERED: hydroCHLOROthiazide 25 MG TABLET PO SCH (09:00)
[2021-02-19 12:49] VITALS: BP 145/85
== END 2021-02-19 12:49 | disposition home health service (06) | DRG 234 ==
LOC: N.TELEN → SUATTDRO 18:17 → N.CVR 02-12 10:56 → N.ICU 02-13 11:23 → N.TELES 02-14 18:09
PROVIDERS: ADMIT Internal Medicine; ATTEND Internal Medicine